=== PATIENT | male | born 1995 | race Caucasian/White ===

== ENCOUNTER 2022-07-14 12:54 | Emergency (ER) | payer MEDICAID, OTHER ==
[~2022-07-14] VITALS: Ht 177.8 cm; Wt 82.0 kg
[2022-07-14 12:58] VITALS: BP 119/66
[2022-07-14] MEDS ORDERED: HYDROCODONE/ACETAMINOPHEN 5/325MG TABLET PO ONE (15:30)
[2022-07-14] MEDS ORDERED: BACITRACIN ZINC OINT UDPKT TOP ONE (15:30)
[2022-07-14] MEDS ORDERED: LIDOCAINE HCL/EPINEPHRINE 1%-EPI 1:100,000 20 ML VIAL INFIL ONE (15:30)
[2022-07-14] MEDS ORDERED: CEPH500C2 MT (18:18)
[2022-07-14] MEDS ORDERED: MUPI1OIN4 TP (18:18)
== END 2022-07-14 18:28 | disposition home or self-care (01) ==
LOC: ER 12:54
DX: S61.512A Laceration without foreign body of left wrist, initial encounter (principal); X58.XXXA Exposure to other specified factors, initial encounter; Y93.89 Activity, other specified; Y92.89 Other specified places as the place of occurrence of the external cause; Y99.8 Other external cause status
CPT/HCPCS: 12002; 73110; 99283; J3490

== ENCOUNTER 2022-07-25 06:21 | Emergency (ER) | payer OTHER ==
[~2022-07-25] VITALS: Ht 175.3 cm; Wt 82.3 kg
[~2022-07-25 06:21] MED LIST: CEPH500C2 MT; MUPI1OIN4 TP
[2022-07-25 09:26] VITALS: BP 110/67
== END 2022-07-25 09:31 | disposition home or self-care (01) ==
LOC: ER 06:21
DX: S61.512D Laceration without foreign body of left wrist, subsequent encounter (principal); Z48.02 Encounter for removal of sutures; X58.XXXD Exposure to other specified factors, subsequent encounter
CPT/HCPCS: 99281